=== PATIENT | male | born 1990 | race Caucasian/White ===

== ENCOUNTER 2018-08-07 12:17 | Emergency (ER) | payer OTHER ==
[2018-08-07 12:37] VITALS: RESP 18
--- NOTE | 2018-08-07 15:12 | CT ---
EXAMINATION TYPE: CT brain wo con DATE OF EXAM: 08/07/2018 COMPARISON: None INDICATION: Right posterior headache during sex. DLP: 1209.4 mGycm, Automated exposure control for dose reduction was used. CONTRAST: None CT of the brain is performed utilizing 3 mm thick sections through the posterior fossa and 3 mm thick sections through the remaining calvarium. Study is performed within 24 hours of arrival to the [facility]. No abnormal hyperdensity is present to suggest an acute intracranial hemorrhage. No mass lesion is evident. No acute infarcts are evident. Ventricles and sulci are appropriate for the patient age. Paranasal sinuses and mastoid air cells within the [id number] are clear. IMPRESSIONS: 1. Normal CT Brain
--- NOTE | 2018-08-07 15:19 | ED ---
ENT HPI - General Chief complaint: ENT Stated complaint: sore throat/headache Time Seen by Provider: 08/07/18 13:18 Source: patient Mode of arrival: ambulatory Limitations: no limitations - History of Present Illness Initial comments: 27-year-old male with PMH of HTN presenting today for headache on-and-off for past 3 days. Patient states that he has had a headache every time he has sex for the past 2 days, he states is sharp shooting pain located to the posterior aspect of his head. Patient denies any visual changes, nausea, vomiting, dizziness, upper or lower extremity weakness or paresthesias, facial asymmetry, ataxia, speech changes or any other symptoms at the time. Patient states that when he gets this headache feels anxious, and throat discomfort. Patient denies any throat pain, pain with swallowing, tongue or neck swelling. Patient denies any ALLERGIES to any medications or rashes, dizziness, confusion, fever, chills, night sweats, neck masses, cough, congestion, sinus pressure. Patient states that he has no current symptoms, but this is happened about 3-4 times total in the past 2-3 times, no episodes today. Remainder was negative, patient denies any recent shortness of breath, chest pain, back pain, abdominal pain, nausea or vomiting, numbness or tingling, dysuria or hematuria, constipation or diarrhea, or any other complaints. Upon arrival pt appears well no signs of acute distress. VS within acceptable limits. - Related Data Allergies Allergy/AdvReac Type Severity Reaction Status Date / Time No Known Allergies Allergy Verified 08/07/18 12:34 Review of Systems ROS Statement: Those systems with pertinent positive or pertinent negative responses have been documented in the HPI. ROS Other: All systems not noted in ROS Statement are negative. Constitutional: Denies: fever, night sweats ENT: Reports: as per HPI (throat discomfort). Denies: ear pain Respiratory: Denies: cough, dyspnea, wheezes, hemoptysis, stridor Cardiovascular: Denies: chest pain, palpitations, dyspnea on exertion, edema Endocrine: Denies: fatigue Gastrointestinal: Denies: abdominal pain, nausea, vomiting, diarrhea, constipation, hematemesis, melena, hematochezia Genitourinary: Denies: urgency, dysuria, frequency, hematuria, discharge Musculoskeletal: Denies: back pain Skin: Denies: rash, lesions Neurological: Reports: headache (sharp,stabbing headache lasting from minute to hours ). Denies: weakness, numbness, paresthesias, confusion, abnormal gait Past Medical History Past Medical History: No Reported History History of Any Multi-Drug Resistant Organisms: None Reported Past Surgical History: No Surgical Hx Reported Past Psychological History: Schizophrenia Smoking Status: Current every day smoker Past Alcohol Use History: None Reported Past Drug Use History: None Reported General Exam - General Exam Comments Initial Comments: General: The patient is awake and alert, in no distress, and does not appear acutely ill. Nontoxic Eye: +3 mm pupils are equal, round and reactive to light, extra-ocular movements are intact. No nystagmus. There is normal conjunctiva bilaterally. No signs of icterus. Ears, nose, mouth and throat: There are moist mucous membranes and no oral lesions. Oropharynx mildly erythematous, there is no tonsillar enlargement, exudates or lesions. Uvula is midline, there is no neck masses. No palpable anterior cervical adenopathy, no tongue swelling noted swelling of the lips. Tympanic membranes are within normal limits bilaterally. External auditory canals within normal limits bilaterally Neck: The neck is supple, there is no tenderness or JVD. No nuchal rigidity, negative Kernig and Brudzinski's. Cardiovascular: There is a regular rate and rhythm. No murmur, rub or gallop is appreciated. Respiratory: Lungs are clear to auscultation, respirations are non-labored, breath sounds are equal. No wheezes, stridor, rales, or rhonchi. Gastrointestinal: Soft, non-distended, non-tender abdomen without masses or organomegaly noted. There is no rebound or guarding present. No CVA tenderness. Bowel sounds are unremarkable. Musculoskeletal: Normal ROM, no tenderness. Strength 5/5. Sensation intact. Radial pulses equal bilaterally 2+. Neurological: A&O x 3. CN II-XII intact, There are no obvious motor or sensory deficits. Coordination appears grossly intact. Speech is normal. Skin: Skin is warm and dry and no rashes or lesions are noted. Psychiatric: Cooperative, appropriate mood & affect, normal judgment. Limitations: no limitations Course Vital Signs 08/07/18 08/07/18 12:35 15:33 Temperature 98.1 F 97.1 F L Pulse Rate 70 60 Respiratory 18 18 Rate Blood Pressure 134/84 133/76 O2 Sat by Pulse 98 98 Oximetry Medical Decision Making - Medical Decision Making 27yo with cc of coital headache, and nonspecific throat discomfort on off x 3 days. Pt denies current symptoms. No focal neurological deficits on exam, no meningeal signs. Signs of respiratory distress or findings concerning for ALLERGIC reaction. Vital signs within acceptable limits. Rapid strep testing negative. Influenza testing negative. CT obtained without contrast, no acute intracranial process. Case discussed in detail Dr. Pineda who at this time feel patient is stable for discharge with primary care follow-up in 1-2 days. I agree with plan, all findings were discussed with patient, patient is agreeable to discharge. Patient was given strict return parameters including return for headache, nausea, vomiting, visual changes or any other concerning symptoms. In addition I discussed possibility of neurology follow-up for further evaluation of coital headaches, patient states that he will discuss this with his primary care provider and obtain referral if deemed necessary. Patient verbalized understanding of plan. Patient was instructed to take over-the- counter ibuprofen and Tylenol for pain management as needed. Patient was discharged in stable condition. - Lab Data Lab Results 08/07/18 08/07/18 Range/Units 13:40 13:40 Influenza Type A RNA Not Detected (Not Detectd) Influenza Type B (PCR) Not Detected (Not Detectd) Group A Strep Rapid Negative (Negative) Disposition Clinical Impression: Coital headache, Throat discomfort Disposition: HOME SELF-CARE Condition: Good Instructions: Acute Headache (ED) Additional Instructions: Please use medication as discussed. Please follow-up with family doctor in the next 2 days, for evaluation and possible neurological referral. Please return to emergency room immediately if the symptoms increase or worsen or for any other concerns, including return of symptoms, nausea, vomiting, visual changes, weakness of UE or any other concerning symptoms. Is patient prescribed a controlled substance at d/c from ED?: No Referrals: Armando Aguilar DO [Primary Care Provider] - 1-2 days Time of Disposition: 15:18
[2018-08-07 15:35] VITALS: BP 133/76; PULSE 60; TEMP 97.1
== END 2018-08-07 15:35 | disposition home or self-care (01) ==
LOC: EC 12:17
DX: G44.82 Headache associated with sexual activity (principal); J39.2 Other diseases of pharynx; F17.200 Nicotine dependence, unspecified, uncomplicated
CPT/HCPCS: 70450; 87081; 87430; 87502; 99284

== ENCOUNTER → 2018-08-15 | Outpatient (CLI) | payer OTHER ==
--- NOTE | 2018-08-16 18:47 | EST ---
EXERCISE STRESS DATE OF SERVICE: 08/15/2018 AGE: 27 SEX: Male HT: 72 WT: 215 PROTOCOL: Moi STAGE: 4 DURATION OF EXERCISE: 11:00 HEART RATE REST: 84 BLOOD PRESSURE REST: 128/61 MAXIMUM HEART RATE ACHIEVED: 161 MAXIMUM BLOOD PRESSURE: 189/79 85% MPHR: 162 100% MPHR: 191 METS: 12.1 INDICATIONS: Syncope. Chest pain. CLINICAL INFORMATION: STRESS DATA: Pre-testing physical examination showed a heart rate of 84, pressure 122/61 mmHg. Baseline EKG showed sinus mechanism. The patient exercised on the treadmill according to Moi protocol for a total of 11 minutes and achieved 12.1 METS. The maximum heart rate was 161 beats per minute, which is about 84% of maximum predicted heart rate. Maximum blood pressure was 189/79 mmHg. Clinically the patient did not have any symptoms of chest pain or chest discomfort during the testing or on recovery. The EKG did not show any significant ST or T-wave abnormalities concerning for ischemia. CONCLUSION: 1. Excellent exercise tolerance. 2. Normal EKG in response to exercise. 3. Essentially normal stress test for the patient. MMODL / IJN: [id number] /
== END | disposition home or self-care (01) ==
LOC: RADNMMAIN 10:11
PROVIDERS: ATTEND Family Medicine
DX: R55 Syncope and collapse (principal)
CPT/HCPCS: 93017

== ENCOUNTER → 2020-03-07 | Outpatient (CLI) | payer OTHER | END | disposition home or self-care (01) | LOC: LABWHC1 10:20 | PROVIDERS: ATTEND Family Medicine | DX: Z11.59 Encounter for screening for other viral diseases (principal) ==